=== PATIENT | male | born 1975 | race American Indian/Alaskan Native ===

== ENCOUNTER 2017-12-25 01:45 | Emergency (ER) | payer OTHER ==
[2017-12-25 01:56] VITALS: BP 126/87
[2017-12-25] MEDS ORDERED: TORADOL ONE (03:12)
[2017-12-25] MEDS ORDERED: TORADOL IM ONE (03:14)
--- NOTE | 2017-12-25 03:37 | Emergency Department Report ---
ED Back Pain/Injury HPI - General Chief Complaint: Back Pain/Injury Stated Complaint: LEG LEG,HIP PAIN Time Seen by Provider: 12/25/17 03:24 Source: patient Limitations: No Limitations - History of Present Illness Initial Comments: 42-year-old -Serbian male comes in complaining of lower back pain that goes down his left leg. Patient reports that this been going on for a couple months but has continued to reinjured the back. Patient reports that the pain is unbearable to the point where he has difficulty sleeping. Patient reports his has difficulty getting comfortable in bed patient reports he has comfortable standing on his feet for very long time or laying down on his back or sitting. Patient reports that this is intermittent. It does respond to ibuprofen but tends to come back. 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 MD Complaint: back pain -: month(s) (3) Similar Symptoms Previously: Yes Place: work Radiation: buttocks, left leg Severity scale (0 -10): 9 Quality: burning, sharp, aching Consistency: intermittent Worsens With: movement, supine, sitting upright, walking Associated Symptoms: denies: difficulty walking, difficulty urinating, incontinence Treatments Prior to Arrival: NSAIDS - Related Data Previous Rx's Medication Instructions Recorded Last Taken Type Gentamicin 0.3% Ophth Soln 2 drops OP Q4H #1 bottle 03/24/16 Unknown Rx Ketorolac Tromethamine [Acular 1 drop OP QID #1 bottle 03/24/16 Unknown Rx 0.5% Opth Soln] traMADol [Ultram 50 MG tab] 50 mg PO Q6HR PRN #20 tablet 07/28/16 Unknown Rx Naproxen [Naprosyn TAB] 500 mg PO BID #30 tablet 12/25/17 Unknown Rx Allergies Allergy/AdvReac Type Severity Reaction Status Date / Time No Known Allergies Allergy Verified 03/24/16 01:43 ED Review of Systems ROS: Stated complaint: LEG LEG,HIP PAIN Other details as noted in HPI Constitutional: denies: chills, fever Gastrointestinal: denies: abdominal pain, nausea, diarrhea Genitourinary: denies: urgency, dysuria Musculoskeletal: back pain Skin: denies: rash, lesions ED Past Medical Hx - Past Medical History Previous Medical History?: Yes Additional medical history: sarcoidosis - Surgical History Past Surgical History?: No - Social History Smoking Status: Current Every Day Smoker Substance Use Type: Alcohol - Medications Home Medications: Home Medications Medication Instructions Recorded Confirmed Last Taken Type Gentamicin 0.3% Ophth Soln 2 drops OP Q4H #1 bottle 03/24/16 Unknown Rx Ketorolac Tromethamine [Acular 1 drop OP QID #1 bottle 03/24/16 Unknown Rx 0.5% Opth Soln] traMADol [Ultram 50 MG tab] 50 mg PO Q6HR PRN #20 tablet 07/28/16 Unknown Rx Naproxen [Naprosyn TAB] 500 mg PO BID #30 tablet 12/25/17 Unknown Rx ED Physical Exam - General Limitations: No Limitations - Back Exam Back exam: Present: tenderness (left lower) - Expanded Back Exam Expanded Back exam: Sciatic Notch Tenderness: Left, Positive Straight Leg Raise: Left ( positive cross leg exam) - Neurological Exam Neurological exam: Present: alert, oriented X3 - Psychiatric Psychiatric exam: Present: normal affect, normal mood - Skin Skin exam: Present: warm, dry, intact, normal color. Absent: rash ED Course Vital Signs 12/25/17 01:43 Temperature 98.2 F Pulse Rate 107 H Respiratory 18 Rate Blood Pressure 126/87 O2 Sat by Pulse 96 Oximetry ED Medical Decision Making - Medical Decision Making Patient has been evaluated by this provider fast track. Patient has been given Toradol injection for pain management. We'll discharge patient on naproxen 500 mg twice a day. Referral to orthopedist. Critical care attestation.: If time is entered above; I have spent that time in minutes in the direct care of this critically ill patient, excluding procedure time. ED Disposition Clinical Impression: Back pain with left-sided sciatica Disposition: DC-01 TO HOME OR SELFCARE Is pt being admited?: No Does the pt Need Aspirin: No Condition: Stable Instructions: Naproxen (By mouth), Sciatica (ED), Lumbar Radiculopathy (ED), Piriformis Syndrome (ED) Additional Instructions: Please take pain medication as prescribed. Please introduce lower back pain exercises and sciatica exercises as this will help with her back. I recommended stretching every morning before going to work. As well as when you get home from work. Please increase her fluid intake and please eat prior to taken naproxen. Prescriptions: Naproxen [Naprosyn TAB] 500 mg PO BID #30 tablet Referrals: PRIMARY CAREMD [Primary Care Provider] - 3-5 Days STEPHANIE MORAN MD [Staff Physician] - 3-5 Days Forms: Work/School Release Form(ED)
== END 2017-12-25 04:02 | disposition home or self-care (01) ==
LOC: ED 01:45
DX: M54.42 Lumbago with sciatica, left side (principal); F17.200 Nicotine dependence, unspecified, uncomplicated
CPT/HCPCS: 96372; 99282; J1885

== ENCOUNTER 2018-10-16 19:56 | Emergency (ER) | payer OTHER ==
--- NOTE | 2018-10-16 20:26 | Emergency Department Report ---
Blank Doc - Documentation Documentation: This is a 43-year-old male that presents with abdominal pain that only occurs during and after bowel movement. Denies any n/v. This initial assessment/diagnostic orders/clinical plan/treatment(s) is/are subject to change based on patient's health status, clinical progression and re- assessment by fellow clinical providers in the ED. Further treatment and workup at subsequent clinical providers discretion. Patient/guardians urged not to elope from the ED as their condition may be serious if not clinically assessed and managed. Initial orders include: 1- Patient sent to [facility] for further evaluation and treatment 2- labs 3- UA 4- XR abd
[2018-10-16 20:47] LABS: Basophils # (Auto) 0.1 K/mm3 (0.0-0.1); Basophils % (Auto) 0.9 % (0.0-1.8); Eosinophils # (Auto) 0.2 K/mm3 (0.0-0.4); Eosinophils % (Auto) 2.1 % (0.0-4.3); Hematocrit 47.5 % (35.5-45.6); Hemoglobin 15.9 gm/dl (11.8-15.2); Lymphocytes # (Auto) 2.3 K/mm3 (1.2-5.4); Lymphocytes % (Auto) 24.9 % (13.4-35.0); Mean Corpuscular HGB Conc 33 % (32-34); Mean Corpuscular Volume 87 fl (84-94); Monocytes # (Auto) 0.7 K/mm3 (0.0-0.8); Monocytes % (Auto) 8.1 % (0.0-7.3); Platelet Count 248 K/mm3 (140-440); Red Blood Count 5.45 M/mm3 (3.65-5.03); Red Cell Distribution Width 14.8 % (13.2-15.2)
[2018-10-16 21:06] LABS: Alanine Aminotransferase 14 units/L (7-56); Albumin 3.6 g/dL (3.9-5); BUN/Creatinine Ratio 10; Blood Urea Nitrogen 8 mg/dL (9-20); Calcium 8.1 mg/dL (8.4-10.2); Hemolysis Index 16
[2018-10-16 21:18] LABS: Bilirubin,Direct < 0.2 mg/dL (0-0.2)
--- NOTE | 2018-10-16 23:19 | Emergency Department Report ---
ED General Adult HPI - General Chief complaint: Abdominal Pain Stated complaint: GENITAL/RECTAL/ABD PAIN Time Seen by Provider: 10/16/18 20:25 Source: patient Mode of arrival: Ambulatory Limitations: No Limitations - History of Present Illness Initial comments: Pt is a 43 yo male who presents to the ED with c/o rectal pain with having a bowel movement that began a couple of days ago. He states he also has scrotal pain. He states he has been straining to have BMs. He denies any scrotal swelling, penile pain, penile discharge, fever, N/V, blood in the stool, or dysuria. He denies ever having previously. he denies any allergies to medications. He states he "had sarcoidosis 10 years ago" is not on any medication now. - Related Data Previous Rx's Medication Instructions Recorded Last Taken Type Naproxen [Naprosyn TAB] 500 mg PO BID #30 tablet 12/25/17 Unknown Rx Docusate Sodium [Colace] 100 mg PO BID #30 capsule 10/17/18 Unknown Rx Doxycycline Hyclate [Doxycycline 100 mg PO BID 14 Days #28 tab 10/17/18 Unknown Rx Hyclate TAB] Hydrocortisone [Anusol-Hc] 30 gm RC DAILY #1 cream..g. 10/17/18 Unknown Rx Allergies Allergy/AdvReac Type Severity Reaction Status Date / Time No Known Allergies Allergy Verified 03/24/16 01:43 ED Review of Systems ROS: Stated complaint: GENITAL/RECTAL/ABD PAIN Other details as noted in HPI Comment: All other systems reviewed and negative ED Past Medical Hx - Past Medical History Previous Medical History?: Yes Additional medical history: sarcoidosis - Surgical History Past Surgical History?: No - Social History Smoking Status: Current Every Day Smoker Substance Use Type: None - Medications Home Medications: Home Medications Medication Instructions Recorded Confirmed Last Taken Type Naproxen [Naprosyn TAB] 500 mg PO BID #30 tablet 12/25/17 Unknown Rx Docusate Sodium [Colace] 100 mg PO BID #30 capsule 10/17/18 Unknown Rx Doxycycline Hyclate [Doxycycline 100 mg PO BID 14 Days #28 tab 10/17/18 Unknown Rx Hyclate TAB] Hydrocortisone [Anusol-Hc] 30 gm RC DAILY #1 cream..g. 10/17/18 Unknown Rx ED Physical Exam - General Limitations: No Limitations General appearance: alert, in no apparent distress - Head Head exam: Present: atraumatic, normocephalic - Eye Eye exam: Present: normal appearance, PERRL - ENT ENT exam: Present: mucous membranes moist - Respiratory Respiratory exam: Present: normal lung sounds bilaterally. Absent: respiratory distress, wheezes, rales, rhonchi, stridor, chest wall tenderness, accessory muscle use, decreased breath sounds, prolonged expiratory - Cardiovascular Cardiovascular Exam: Present: regular rate, normal rhythm, normal heart sounds. Absent: systolic murmur, diastolic murmur, rubs, gallop - GI/Abdominal GI/Abdominal exam: Present: soft, normal bowel sounds. Absent: distended, tenderness, guarding, rebound, rigid - Rectal Rectal exam: Present: hemorrhoids (pt has small, non thrombosed external hemorrhoid), other (conor, RN present during examination) - exam: Present: normal inspection, other (small amount of erythema in the perineal region, no fluctuance or induration). Absent: testicular tenderness, urethral discharge, scrotal swelling ED Course Vital Signs 10/16/18 10/17/18 20:02 00:34 Temperature 98.2 F 98.2 F Pulse Rate 103 H 83 Respiratory 18 18 Rate Blood Pressure 132/88 Blood Pressure 124/88 [Left] O2 Sat by Pulse 96 97 Oximetry ED Medical Decision Making - Lab Data Result diagrams: 10/16/18 20:38 10/16/18 20:38 Lab Results 10/16/18 10/16/18 10/16/18 Range/Units 20:38 20:38 23:19 WBC 9.2 (4.5-11.0) K/mm3 RBC 5.45 H (3.65-5.03) M/mm3 Hgb 15.9 H (11.8-15.2) gm/dl Hct 47.5 H (35.5-45.6) % MCV 87 (84-94) fl MCH 29 (28-32) pg MCHC 33 (32-34) % RDW 14.8 (13.2-15.2) % Plt Count 248 (140-440) K/mm3 Lymph % (Auto) 24.9 (13.4-35.0) % Citrus % (Auto) 8.1 H (0.0-7.3) % Eos % (Auto) 2.1 (0.0-4.3) % Baso % (Auto) 0.9 (0.0-1.8) % Lymph # 2.3 (1.2-5.4) K/mm3 Citrus # 0.7 (0.0-0.8) K/mm3 Eos # 0.2 (0.0-0.4) K/mm3 Baso # 0.1 (0.0-0.1) K/mm3 Seg Neutrophils % 64.0 (40.0-70.0) % Seg Neutrophils # 5.9 (1.8-7.7) K/mm3 Sodium 138 (137-145) mmol/L Potassium 3.9 (3.6-5.0) mmol/L Chloride 104.3 (98-107) mmol/L Carbon Dioxide 26 (22-30) mmol/L Anion Gap 12 mmol/L BUN 8 L (9-20) mg/dL Creatinine 0.8 (0.8-1.5) mg/dL Estimated GFR > 60 ml/min BUN/Creatinine Ratio 10 % Glucose 157 H (75-100) mg/dL Calcium 8.1 L (8.4-10.2) mg/dL Total Bilirubin 0.20 (0.1-1.2) mg/dL Direct Bilirubin < 0.2 (0-0.2) mg/dL Indirect Bilirubin 0.0 mg/dL AST 12 (5-40) units/L ALT 14 (7-56) units/L Alkaline Phosphatase 41 (35-129) units/L Total Protein 5.7 L (6.3-8.2) g/dL Albumin 3.6 L (3.9-5) g/dL Albumin/Globulin Ratio 1.7 % Lipase 46 (13-60) units/L Urine Color Yellow (Yellow) Urine Turbidity Clear (Clear) Urine pH 5.0 (5.0-7.0) Ur Specific [place] 1.020 (1.003-1.030) Urine Protein <15 mg/dl (Negative) mg/dL Urine Glucose (UA) Neg (Negative) mg/dL Urine Ketones Tr (Negative) mg/dL Urine Blood Neg (Negative) Urine Nitrite Neg (Negative) Urine Bilirubin Neg (Negative) Urine Urobilinogen 2.0 (<2.0) mg/dL Ur Leukocyte Esterase Tr (Negative) Urine WBC (Auto) 9.0 H (0.0-6.0) /HPF Urine RBC (Auto) 1.0 (0.0-6.0) /HPF Urine Mucus Few /HPF Vital Signs 10/16/18 10/17/18 20:02 00:34 Temperature 98.2 F 98.2 F Pulse Rate 103 H 83 Respiratory 18 18 Rate Blood Pressure 132/88 Blood Pressure 124/88 [Left] O2 Sat by Pulse 96 97 Oximetry - Medical Decision Making Pt is a 43 yo male who presents to the ED with c/o rectal pain with having a bowel movement that began a couple of days ago. He states he also has scrotal pain. He states he has been straining to have BMs. He denies any scrotal swelling, penile pain, penile discharge, fever, N/V, blood in the stool, or dysuria. He denies ever having previously. he denies any allergies to medications. He states he "had sarcoidosis 10 years ago" is not on any medication now. On examination pt has small, non thrombosed, external hemo rrhoid. Also on examination pt has small amount of perineal erythema, no fluctuance or induration. urine shows WBCs and leukocyte esterase. labs with mildly elevated blood glucose otherwise normal, advised pt to discuss with his PCP and to avoid sugars/carbohydrates. Pt given ceftriaxone in the ED and a 14 day prescription for doxcycline. pt given hemorrhoid tx and stool softener. Advised pt to follow up with urology, GI, and PCP in the next 2-3 days. Return to the emergency room for any new or worsening symptoms. Critical care attestation.: If time is entered above; I have spent that time in minutes in the direct care of this critically ill patient, excluding procedure time. ED Disposition Clinical Impression: Prostatitis Qualifiers: Prostatitis type: acute Qualified Code(s): N41.0 - Acute prostatitis Hemorrhoid Qualifiers: Hemorrhoid type: first degree Qualified Code(s): K64.0 - First degree hemorrhoids Disposition: TO HOME OR SELFCARE Is pt being admited?: No Does the pt Need Aspirin: No Condition: Stable Instructions: Hemorrhoids (ED), Prostatitis (ED) Additional Instructions: Please take all medication as prescribed. Please follow up with a urologist in the next 2-3 days. Please follow up with a GI doctor in the next 2-3 days. Please follow up with a primary care doctor in the next 2-3 days. Return to the emergency room for any new or worsening symptoms. Prescriptions: Hydrocortisone [Anusol-Hc] 30 gm RC DAILY #1 cream..g. Docusate Sodium [Colace] 100 mg PO BID #30 capsule Doxycycline Hyclate [Doxycycline Hyclate TAB] 100 mg PO BID 14 Days #28 tab Referrals: MINO BAZAN MD [Primary Care Provider] - 2-3 Days [facility] [Provider Group] - 2-3 Days MYNOR BENOIT MD [Staff Physician] - 2-3 Days Forms: Work/School Release Form(ED) Time of Disposition: 00:09 Print Language: ESTONIAN
[2018-10-16 23:54] LABS: Bilirubin,Urine NEG (Negative); Blood,Urine NEG (Negative); Color,Urine Yellow (Yellow); Mucus,Urine FEW /HPF; Protein,Urine <15 mg/dL mg/dL (Negative)
--- NOTE | 2018-10-16 23:57 | XRay Report ---
PROCEDURE: XR ABDOMEN 2V TECHNIQUE: Abdominal series, including supine and upright AP views. HISTORY: constipation, pain with BM COMPARISONS: None . FINDINGS: Bowel gas pattern: Nonobstructive . Masses or calcifications: None . Bony structures: No significant abnormality . Pneumoperitoneum: None . Other: No significant findings . IMPRESSION: No acute abnormality. This document is electronically signed by Juan Pike MD., Oct 16 2018 11:55:36 PM ET
[2018-10-17] MEDS ORDERED: XYLOCAINE 1% MPF 5 mL INFILTRATI ONE (00:07)
[2018-10-17] MEDS ORDERED: ROCEPHIN IM ONE (00:07)
[2018-10-17 00:35] VITALS: BP 124/88
== END 2018-10-17 00:33 | disposition home or self-care (01) ==
LOC: ED 19:56
DX: N41.0 Acute prostatitis (principal); K64.0 First degree hemorrhoids; F17.200 Nicotine dependence, unspecified, uncomplicated
CPT/HCPCS: 36415; 74019; 80048; 80076; 81001; 83690; 85025; 96372; 99284; J0696

== ENCOUNTER 2021-03-25 10:18 | Emergency (ER) | payer SELFPAY ==
[2021-03-25 10:22] VITALS: BP 155/90
--- NOTE | 2021-03-25 10:51 | Emergency Department Report ---
ED Extremity Problem HPI - General Chief complaint: Pain General Stated complaint: PAIN IN RT SHOULDER FOR X MONTHS Time Seen by Provider: 03/25/21 10:42 Source: patient Mode of arrival: Ambulatory Limitations: No Limitations - History of Present Illness Initial comments: Patient is a 45-year-old male presents emergency room with complaints of right shoulder pain that began 2 months ago. 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 He denies any fall or injury. He denies any issues with the shoulder in the past. He states he has been working approximately 7 days a week. He states he has pain with movement or laying on that shoulder. He states he is having some tingling sensation in his right index finger for the last 2 months since his shoulder began having pain. He denies any weakness or complete numbness. No past medical history. No allergies to medications. - Related Data Previous Rx's Medication Instructions Recorded Last Taken Type Naproxen [Naprosyn TAB] 500 mg PO BID #30 tablet 12/25/17 Unknown Rx Docusate Sodium [Colace] 100 mg PO BID #30 capsule 10/17/18 Unknown Rx Doxycycline Hyclate [Doxycycline 100 mg PO BID 14 Days #28 tab 10/17/18 Unknown Rx Hyclate TAB] Hydrocortisone [Anusol-Hc] 30 gm RC DAILY #1 cream..g. 10/17/18 Unknown Rx Gabapentin 100 mg PO Q8HR #21 capsule 03/25/21 Unknown Rx Menthol/Camphor [[place] 1 applicatio TP BID #18 oint...g. 03/25/21 Unknown Rx Ointment] Naproxen 375 mg PO BID PRN #14 tablet 03/25/21 Unknown Rx methOCARBAMOL [Robaxin TAB] 500 mg PO BID PRN #14 tab 03/25/21 Unknown Rx Allergies Allergy/AdvReac Type Severity Reaction Status Date / Time No Known Allergies Allergy Verified 03/24/16 01:43 ED Review of Systems ROS: Stated complaint: PAIN IN RT SHOULDER FOR X MONTHS Other details as noted in HPI Comment: All other systems reviewed and negative ED Past Medical Hx - Past Medical History Previous Medical History?: Yes Additional medical history: sarcoidosis - Surgical History Past Surgical History?: No - Social History Smoking Status: Current Every Day Smoker Substance Use Type: None - Medications Home Medications: Home Medications Medication Instructions Recorded Confirmed Last Taken Type Naproxen [Naprosyn TAB] 500 mg PO BID #30 tablet 12/25/17 Unknown Rx Docusate Sodium [Colace] 100 mg PO BID #30 capsule 10/17/18 Unknown Rx Doxycycline Hyclate [Doxycycline 100 mg PO BID 14 Days #28 tab 10/17/18 Unknown Rx Hyclate TAB] Hydrocortisone [Anusol-Hc] 30 gm RC DAILY #1 cream..g. 10/17/18 Unknown Rx Gabapentin 100 mg PO Q8HR #21 capsule 03/25/21 Unknown Rx Menthol/Camphor [[place] 1 applicatio TP BID #18 oint...g. 03/25/21 Unknown Rx Ointment] Naproxen 375 mg PO BID PRN #14 tablet 03/25/21 Unknown Rx methOCARBAMOL [Robaxin TAB] 500 mg PO BID PRN #14 tab 03/25/21 Unknown Rx ED Physical Exam - General Limitations: No Limitations General appearance: alert, in no apparent distress - Head Head exam: Present: atraumatic, normocephalic - Eye Eye exam: Present: normal appearance - ENT ENT exam: Present: mucous membranes moist - Extremities Exam Extremities exam: Present: other (no bony ttp of the RUE, no edema, no erythema, no increased warmth, FROM of the RUE, pt experiences pain when raising the right shoulder greater than 90 degrees,pain with empty can test, clavicles are equal, no clavicular ttp, no sulcus sign, neurovasculalry intact ) - Neurological Exam Neurological exam: Present: alert, oriented X3 - Psychiatric Psychiatric exam: Present: normal affect, normal mood - Skin Skin exam: Present: warm, dry, intact ED Course Vital Signs 03/25/21 10:20 Temperature 98.9 F Pulse Rate 98 H Respiratory 19 Rate Blood Pressure 155/90 O2 Sat by Pulse 98 Oximetry ED Medical Decision Making - Medical Decision Making Patient is a 45-year-old male presents emergency room with complaints of right shoulder pain that began 2 months ago. 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 He denies any fall or injury. He denies any issues with the shoulder in the past. He states he has been working approximately 7 days a week. He states he has pain with movement or laying on that shoulder. He states he is having some tingling sensation in his right index finger for the last 2 months since his shoulder began having pain. He denies any weakness or complete numbness. No past medical history. No allergies to medications. Vitals are stable. On exam:no bony ttp of the RUE, no edema, no erythema, no increased warmth, FROM of the RUE, pt experiences pain when raising the right shoulder greater than 90 degrees,pain with empty can test, clavicles are equal, no clavicular ttp, no sulcus sign, neurovasculalry intact. Symptoms and examin ation appear likely consistent with rotator cuff versus shoulder impingement. Patient has had no acute trauma. He has no signs of infection or septic joint. Patient is neurovascularly intact with soft compartments. Discussed the importance of outpatient orthopedic follow-up. Patient given prescription for medication. Advised patient Please use medication as prescribed. Follow-up with orthopedic doctor. Return to emergency room for any new or worsening symptoms. Critical care attestation.: If time is entered above; I have spent that time in minutes in the direct care of this critically ill patient, excluding procedure time. ED Disposition Clinical Impression: Right shoulder pain Qualifiers: Chronicity: acute Qualified Code(s): M25.511 - Pain in right shoulder Disposition: 01 HOME / SELF CARE / HOMELESS Is pt being admited?: No Does the pt Need Aspirin: No Condition: Stable Instructions: Rotator Cuff Tendinitis, Shoulder Impingement Syndrome Additional Instructions: Please use medication as prescribed. Follow-up with orthopedic doctor. Return to emergency room for any new or worsening symptoms. Prescriptions: Gabapentin 100 mg PO Q8HR #21 capsule Naproxen 375 mg PO BID PRN #14 tablet PRN Reason: pain methOCARBAMOL [Robaxin TAB] 500 mg PO BID PRN #14 tab PRN Reason: pain/muscle spasm Menthol/Camphor [[place] Ointment] 1 applicatio TP BID #18 oint...g. Referrals: STEPHANIE MORAN MD [Staff Physician] - 3-5 Days [facility] [Provider Group] - 3-5 Days Forms: Work/School Release Form(ED) Time of Disposition: 10:50 Print Language: TRINIDADIAN
== END 2021-03-25 11:11 | disposition home or self-care (01) ==
LOC: ED 10:18
DX: M25.511 Pain in right shoulder (principal); F17.200 Nicotine dependence, unspecified, uncomplicated; Z79.899 Other long term (current) drug therapy
CPT/HCPCS: 99281